=== PATIENT | female | born 1955 | race Caucasian/White ===

== ENCOUNTER 2016-12-03 08:23 | Emergency (ER) | payer OTHER ==
[~2016-12-03] VITALS: Ht 162.6 cm; Wt 89.0 kg
[~2016-12-03 08:23] MED LIST: AMOX1TAB10 PO; ASPI-465 PO; AZIT250T94 PO; BEN25 PO; LORA10TA3 PO; PROM118S PO; ZOC20 PO
[2016-12-03 08:26] VITALS: Ht 162.6 cm; Wt 89.0 kg
[2016-12-03] MEDS ORDERED: KETOROLAC 30 MG INJ IM STA (10:19)
--- NOTE | 2016-12-03 10:25 | ERD ---
ER Documentation Chief Complaint Date/Time DATE: 12/03/16 TIME: 10:22 Chief Complaint LEFT ARM PAIN HPI This is a 60-year-old female presenting to emergency department for left arm pain 5 days. Patient states her left elbow has been hurting for the past 5 days and radiates down her left arm. Patient has some pain in her left shoulder however pain is worse in her elbow. Patient with her primary care provider earlier this week and provider gave her ibuprofen. Denies any injury or fall. Patient states the ibuprofen improved her pain however pain returned. Patient has history of osteoarthritis. No fevers or chills. No edema or redness to area. Denies neck pain or stiffness. Denies numbness, tingling or loss of sensation. No weakness. ROS All systems reviewed and are negative except as per history of present illness. Medications Home Meds Active Scripts Ibuprofen* (Motrin*) 800 Mg Tab, 800 MG PO Q6, #10 TAB Prov:JANNETTE RIVAS NP 12/03/16 Hydrocodone/Acetaminophen (Rolfe 5-325 Tablet) 1 Each Tablet, 1 TAB PO Q6H Y for PAIN, #7 TAB Prov:JANNETTE RIVAS NP 12/03/16 Promethazine/Phenyleph/Codeine (Ksmwxjpnqgru-BD-Alihwtz Syrup) 118 Ml Syrup, 1 TSP PO Q6 for COUGH, #1 BOTTLE Prov:DELISA PRECIADO PA-C 11/07/16 Amoxicillin/Potassium Clav (Amox-Clav 875-125 mg Tablet) 875-125 mg Tab, 1 TAB PO BID for 7 Days, #14 TAB Prov:DELISA PRECIADO PA-C 11/07/16 Diphenhydramine Hcl* (Benadryl*) 25 Mg Cap, 25 MG PO Q6, #30 CAP Prov:CHRIS GUZMAN PA-C 04/24/16 Azithromycin* (Zithromax*) 250 Mg Tablet, 250 MG PO .ESTRELLITA DIRECTED, #6 TAB TAKE 500 MG (2 TABS) THE FIRST DAY THEN 250 MG (1 TAB) DAYS 2-5 Prov:DELISA PRECIADO PA-C 12/28/15 Reported Medications Aspirin (Adult Low Dose Aspirin) 81 Mg Tablet.dr, 81 MG PO DAILY 03/06/14 Simvastatin (Simvastatin) 20 Mg Tablet, 20 MG PO DAILY 03/06/14 Loratadine* (Loratadine*) 10 Mg Tablet, 10 MG PO DAILY 03/06/14 Allergies Allergies: Coded Allergies: sulfacetamide (Verified Allergy, Intermediate, Rash, 12/03/16) clindamycin (Verified Allergy, Unknown, RASH, 12/03/16) PMhx/Soc Osteoarthritis Medical and Surgical Hx: pt denies Medical Hx, pt denies Surgical Hx History of Surgery: No Anesthesia Reaction: No Hx Neurological Disorder: No Hx Respiratory Disorders: No Hx Cardiac Disorders: No Hx Psychiatric Problems: No Hx Miscellaneous Medical Probl: No Hx Alcohol Use: No Hx Substance Use: No Hx Tobacco Use: No Physical Exam Vitals Vital Signs Date Time Temp Pulse Resp B/P Pulse Ox O2 Delivery O2 Flow Rate FiO2 12/03/16 08:26 97.6 108 19 128/70 96 Physical Exam Const: No acute distress, alert Head: Atraumatic Eyes: Normal Conjunctiva ENT: Normal External Ears, Nose and Mouth. Neck: Full range of motion..~ No meningismus. Resp: Clear to auscultation bilaterally Cardio: Regular rate and rhythm, no murmurs Abd: Soft, non tender, non distended. Normal bowel sounds Skin: No petechiae or rashes Back: No midline or flank tenderness Ext: No cyanosis, or edema Neur: Awake and alert Psych: Normal Mood and Affect Results 24 hrs Current Medications Medications (Trade) Dose Ordered Sig/Bipin Route PRN Reason Start Time Stop Time Status Last Admin Dose Admin Ketorolac Tromethamine (Toradol) 30 mg ONCE STAT IM 12/03/16 10:19 12/03/16 10:22 DC 12/03/16 10:26 Acetaminophen/ Hydrocodone Bitart (Rolfe (5/325)) 2 tab ONCE ONCE PO 12/03/16 10:30 12/03/16 10:31 DC 12/03/16 10:27 Procedures/MDM ED COURSE: The patient was stable throughout ED course. I kept the patient and/or family informed of laboratory and diagnostic imaging results throughout the ED course. Toradol IM and Rolfe p.o. given while in the ED peer Imaging X-ray left elbow Patient: ARLENE RETANA : 1955 Age: 60 Sex: F MR #: [id number] DOS: 01/21/17 1019 Ordering MD: JANNETTE RIVAS NP Location: [facility] Room/Bed: PROCEDURE: XR left elbow. CLINICAL INDICATION: Elbow pain TECHNIQUE: Three views of the elbow are available for review. COMPARISON: No prior studies are available for comparison. FINDINGS: There is normal mineralization, architecture and alignment. No fracture or osseous lesion is identified. The joints are unremarkable. The soft tissues are unremarkable. IMPRESSION: Unremarkable examination X-ray left shoulder Patient: ARLENE RETANA : 1955 Age: 60 Sex: F MR #: [id number] Located Within [facility] #: [id number] DOS: 12/03/16 1019 Ordering MD: JANNETTE RIVAS NP Location: [facility] Room/Bed: PROCEDURE: CR left shoulder CLINICAL INDICATION: Shoulder pain TECHNIQUE: 3 views performed COMPARISON: No comparison available. FINDINGS: There is normal mineralization, architecture and alignment.No fracture or osseous lesion is identified.The glenohumeral and acromioclavicular joints are unremarkable. The soft tissues are unremarkable. IMPRESSION: Unremarkable examination. MDM: 60-year-old female presents emergency department for limited mobility and pain to left elbow 5 days. Patient denies any injury or fall. Patient has had this pain before however pain has worsened. Toradol and Rolfe given on the ED with good relief of pain. X-rays ordered. X-ray left shoulder reviewed by radiologist as unremarkable. X-ray left elbow reviewed by radiologist as unremarkable. Patient's pain has improved after Toradol and Rolfe. Mobility has improved after pain medications. Patient remains neurovascularly intact. No fevers or chills. Skin is warm dry and intact. No laceration, bruising or erythema. Low suspicion for acute dislocation, fracture, compartment syndrome, septic arthritis and osteomyelitis. Patient diagnosis is left arm pain likely osteoarthritis. Patient is appropriate for outpatient management will be discharged with prescription for ibuprofen and Rolfe. Instructed patient to follow-up with primary care provider in the next 2-3 days for reassessment and additional management. Reports of x-rays provided for patient. Return to ED for any high fever, chest pain, difficulty breathing, shortness breath, wheezing, vomiting, diarrhea, abdominal pain or any new or worsening symptoms. Patient verbalizes understanding. All questions answered at discharge. Departure Diagnosis: Primary Impression: Pain of left arm Condition: Stable JANNETTE RIVAS NP Dec 03, 2016 10:25
[2016-12-03] MEDS ORDERED: HYDROCODONE/APAP (5/325) TAB PO ONE (10:30)
--- NOTE | 2016-12-03 11:22 | RADRPT ---
PROCEDURE: CR left shoulder CLINICAL INDICATION: Shoulder pain TECHNIQUE: 3 views performed COMPARISON: No comparison available. FINDINGS: There is normal mineralization, architecture and alignment.No fracture or osseous lesion is identifi ed.The glenohumeral and acromioclavicular joints are unremarkable. The soft tissues are unremarkable . IMPRESSION: Unremarkable examination. RPTAT: HGDB .Reji Guillen MD, MD Date Time Electronically viewed and signed by .Reji Guillen MD, on 12/03/2016 11:22 .B/
--- NOTE | 2016-12-03 11:22 | RADRPT ---
PROCEDURE: XR left elbow. CLINICAL INDICATION: Elbow pain TECHNIQUE: Three views of the elbow are available for review. COMPARISON: No prior studies are available for comparison. FINDINGS: There is normal mineralization, architecture and alignment. No fracture or osseous lesion is identi fied. The joints are unremarkable. The soft tissues are unremarkable. IMPRESSION: Unremarkable examination RPTAT: HGDB .Reji Guillen MD, MD Date Time Electronically viewed and signed by .Reji Guillen MD, on 12/03/2016 11:21 .B/
[2016-12-03] MEDS ORDERED: HYDR-906 PO (11:40)
[2016-12-03] MEDS ORDERED: IBUP800T25 PO (11:40)
== END 2016-12-03 11:56 | disposition home or self-care (01) ==
LOC: FTE 08:23
DX: M79.602 Pain in left arm (principal); Z79.82 Long term (current) use of aspirin
CPT/HCPCS: 73030; 73080; 96372; J1885; Z7502; Z7610

== ENCOUNTER 2018-05-25 07:01 | Day surgery (SDC) | END 2018-05-25 19:12 | disposition home or self-care (01) ==

== ENCOUNTER 2018-05-27 04:39 | Emergency (ER) | END 2018-05-27 07:40 | disposition home or self-care (01) ==